=== PATIENT | female | born 1965 | race Asian ===

== ENCOUNTER → 2016-12-06 | Outpatient (CLI) | payer BC ==
--- NOTE | 2016-12-06 11:10 | XR ---
EXAMINATION TYPE: XR cervical spine limited DATE OF EXAM: 12/06/2016 11:07 AM TECHNIQUE: Frontal, lateral, and open mouth view of the cervical spine are obtained. HISTORY: Neck pain M54.2 headache with neck pain and tingling. COMPARISON: None FINDINGS: The cervical spine is visualized in its entirety from C1 thru the top of T1 level, it is s atisfactory in alignment without evidence of acute fracture or dislocation. The pre-vertebral soft t issue appears within normal limits. The C1-C2 articulation is within normal limits on the open mouth view. Vertebral body heights and disc space heights are fairly well-maintained. There is mild to mod erate multilevel anterior spurring in the cervical spine with anterior calcifications or ossification s identified. Multilevel uncovertebral facet degenerative changes are suspected bilaterally in the mi d cervical spine. IMPRESSION: Degenerative changes cervical spine as detailed above, consider MRI correlation.
== END ==
LOC: RADXRMAIN 10:47
PROVIDERS: ATTEND Family Medicine
DX: M77.8 Other enthesopathies, not elsewhere classified (principal)
CPT/HCPCS: 72040

== ENCOUNTER → 2017-03-30 | Outpatient (CLI) | payer BC ==
--- NOTE | 2017-03-30 12:27 | US ---
EXAMINATION TYPE: US pelvic complete DATE OF EXAM: 03/30/2017 COMPARISON: 03/26/2016 CLINICAL HISTORY: 51-year-old female D25.9 Uterine Leiomyoma. TECHNIQUE: Transabdominal (TA) FINDINGS: Date of LMP: 03/22/2017 Uterus: Anteverted measuring 11.4 x 5.7 x 8.9 cm there is a right posterior fundal fibroid measures 4.8 cm and may abut the endometrium. It is primarily intramural and was previously measured at 5.7 c m. Endometrial Stripe: 0.9 cm, within normal limits. Right Ovary: 3.1 x 1.5 x 2.8 cm Left Ovary: 2.1 x 1.1 x 2.7 cm Follicular change present on both sides. No evidence of adnexal abnormality or cul-de-sac free fluid. IMPRESSION: The posterior right fundal focal fibroid measures 4.8 cm. Previously, it was measured at 5.7 cm. Fibr oid is primarily intramural but may abut the endometrium.
== END | disposition home or self-care (01) ==
LOC: RADUSWWP 09:50
PROVIDERS: ATTEND Obstetrics & Gynecology
DX: D25.9 Leiomyoma of uterus, unspecified (principal)
CPT/HCPCS: 76856

== ENCOUNTER → 2017-03-31 | Outpatient (CLI) | payer BC ==
--- NOTE | 2017-04-04 07:16 | MM ---
Reason for exam: screening (asymptomatic). Last mammogram was performed 1 year ago. Physical Findings: A clinical breast exam by your physician is recommended on an annual basis and results should be correlated with mammographic findings. MG Screening Mammo w CAD Bilateral CC and MLO view(s) were taken. Prior study comparison: March 26, 2016, bilateral MG screening mammo w CAD. January 08, 2015, bilateral MG screening mammo w CAD. January 02, 2014, bilateral digital screening mammo w/CAD. The breast tissue is heterogeneously dense. This may lower the sensitivity of mammography. No significant changes when compared with prior studies. ASSESSMENT: Negative, BI-RAD 1 RECOMMENDATION: Routine screening mammogram of both breasts in 1 year.
== END | disposition home or self-care (01) ==
LOC: RADMAMWWP 17:04
PROVIDERS: ATTEND Obstetrics & Gynecology
DX: Z12.31 Encounter for screening mammogram for malignant neoplasm of breast (principal)

== ENCOUNTER → 2018-04-24 | Outpatient (CLI) | payer BC ==
--- NOTE | 2018-04-24 17:23 | US ---
EXAMINATION TYPE: US pelvic complete plus Dopplers DATE OF EXAM: 04/24/2018 COMPARISON: 03/30/2017 CLINICAL HISTORY: 52-year-old female R10.2 Pelvic Pain; occasional left pelvic pain. ; uterine fi broids TECHNIQUE: Transabdominal sonographic images of the pelvis were acquired; color Doppler and spectral waveform analysis of the ovarian arteries and veins. Date of LMP: 04/16/2018 FINDINGS: EXAM MEASUREMENTS: Uterus: 10.3 x 7.5 x 6.1 cm Endometrial Stripe: 0.3 cm Right Ovary: 2.3 x 1.7 x 1.5 cm Left Ovary: 2.2 x 1.9 x 1.3 cm 1. Uterus: Anteverted; couple of cervical Nabothian cysts, largest located anteriorly measuring 9 mm . There is very heterogeneous appearance to the posterior uterine fundus/body suggesting an aggregate of fibroids measuring up to 5.8 x 5.9 x 2.8 cm. This appears intramural. 2. Endometrium: limitedly seen due to uterine fibroids partially obscuring endometrial area. Visuali zed endometrial stripe is within normal limits. 3. Right Ovary: small follicles with largest as simple follicular cyst =1.1 x 1.0 x 0.7cm 4. Left Ovary: small hypoechoic cyst = 0.9 x 1.0 x 0.6 and could be involuting cyst Spectral, color and waveform Doppler imaging shows good arterial and venous flow within the ovaries ; there is no evidence for ovarian torsion. 5. Bilateral Adnexa: wnl 6. Posterior cul-de-sac: wnl IMPRESSION: 1. No sonographic evidence for ovarian torsion. 2. Heterogeneous posterior uterine fundus/body suggesting an aggregate of intramural fibroids measuri ng up to 5.9 cm. 3. Some of the endometrial stripe is obscured due to the fibroid change. The visualized endometrial s tripe is thin at 3 mm.
== END | disposition home or self-care (01) ==
LOC: RADUSWWP 13:01
PROVIDERS: ATTEND Obstetrics & Gynecology
DX: D25.9 Leiomyoma of uterus, unspecified (principal)
CPT/HCPCS: 76856

== ENCOUNTER → 2018-05-09 | Outpatient (CLI) | payer BC ==
--- NOTE | 2018-05-10 14:48 | MM ---
Reason for exam: screening (asymptomatic). Last mammogram was performed 1 year and 1 month ago. Physical Findings: A clinical breast exam by your physician is recommended on an annual basis and results should be correlated with mammographic findings. MG Screening Mammo w CAD Bilateral CC and MLO view(s) were taken. Prior study comparison: March 31, 2017, bilateral MG screening mammo w CAD. March 26, 2016, bilateral MG screening mammo w CAD. The breast tissue is heterogeneously dense. This may lower the sensitivity of mammography. No significant changes when compared with prior studies. ASSESSMENT: Benign, BI-RAD 2 RECOMMENDATION: Routine screening mammogram of both breasts in 1 year.
== END | disposition home or self-care (01) ==
LOC: RADMAMWWP 15:09
PROVIDERS: ATTEND Obstetrics & Gynecology
DX: Z12.31 Encounter for screening mammogram for malignant neoplasm of breast (principal)
CPT/HCPCS: 77067

== ENCOUNTER → 2019-06-19 | Outpatient (CLI) | payer BC ==
--- NOTE | 2019-06-20 09:34 | MM ---
Reason for exam: screening (asymptomatic). Last mammogram was performed 1 year and 1 month ago. Physical Findings: A clinical breast exam by your physician is recommended on an annual basis and results should be correlated with mammographic findings. MG Screening Mammo w CAD Bilateral CC and MLO view(s) were taken. Prior study comparison: May 09, 2018, bilateral MG screening mammo w CAD. March 31, 2017, bilateral MG screening mammo w CAD. The breast tissue is extremely dense which could obscure a lesion on mammography. Finding: There are typically benign dystrophic, round calcifications in both breasts. There is no discrete abnormality. ASSESSMENT: Benign, BI-RAD 2 RECOMMENDATION: Routine screening mammogram of both breasts in 1 year.
== END | disposition home or self-care (01) ==
LOC: RADMAMWWP 09:12
PROVIDERS: ATTEND Obstetrics & Gynecology
DX: Z12.31 Encounter for screening mammogram for malignant neoplasm of breast (principal)
CPT/HCPCS: 77067

== ENCOUNTER → 2020-06-09 | Outpatient (CLI) | payer BC ==
--- NOTE | 2020-06-09 17:58 | US ---
EXAMINATION TYPE: US pelvic complete DATE OF EXAM: 06/09/2020 COMPARISON: NONE CLINICAL HISTORY: 54-year-old female D25.9 Uterine fibroids. LLQ Pain; Hx of fibroids TECHNIQUE: Transvaginal (TV) and Transabdominal (TA) . Transabdominal sonographic images of the pel vis were acquired. Transvaginal sonographic images were medically necessary to better assess the fol lowing anatomy: Ovaries FINDINGS: EXAM MEASUREMENTS: Uterus: 12.0 x 6.9 x 7.3 cm Endometrial Stripe: 1.1 cm Right Ovary: 2.6 x 1.7 x 1.9 cm Left Ovary: 2.6 x 1.4 x 1.9 cm 1. Uterus: Anteverted. Right posterior uterine fundal focal fibroid measuring 6.1 x 5.8 x 5.0 cm 2. Endometrium: wnl 3. Right Ovary: Hypoechoic area 1.5 x 1.2 x 1.1 cm, possible corpus luteum 4. Left Ovary: wnl 5. Bilateral Adnexa: wnl 6. Posterior cul-de-sac: wnl IMPRESSION: 1. Endometrial stripe measures 1.1 cm which would be abnormally thickened for a postmenopausal female . Correlate to ensure premenopausal state. 2. A 6.1 cm focal fibroid right posterior uterine fundus. 3. A 1.5 cm hypoechoic area in the right ovary could represent a corpus luteum. Follow-up in 2-3 rand hs to reassess.
== END | disposition home or self-care (01) ==
LOC: RADUSWWP 13:02
PROVIDERS: ATTEND Obstetrics & Gynecology
DX: R93.89 Abnormal findings on diagnostic imaging of other specified body structures (principal); D25.9 Leiomyoma of uterus, unspecified
CPT/HCPCS: 76856

== ENCOUNTER → 2020-07-01 | Outpatient (CLI) | payer BC ==
--- NOTE | 2020-07-03 11:25 | MM ---
Reason for exam: screening (asymptomatic). Last mammogram was performed 1 year ago. Physical Findings: A clinical breast exam by your physician is recommended on an annual basis and results should be correlated with mammographic findings. MG 3D Screening Mammo W/Cad Bilateral CC and MLO view(s) were taken. Prior study comparison: June 19, 2019, bilateral MG screening mammo w CAD. May 09, 2018, bilateral MG screening mammo w CAD. The breast tissue is heterogeneously dense. This may lower the sensitivity of mammography. Benign appearing bilateral calcifications. No significant changes when compared with prior studies. ASSESSMENT: Benign, BI-RAD 2 RECOMMENDATION: Routine screening mammogram of both breasts in 1 year.
== END | disposition home or self-care (01) ==
LOC: RADMAMWWP 13:52
PROVIDERS: ATTEND Obstetrics & Gynecology
DX: Z12.31 Encounter for screening mammogram for malignant neoplasm of breast (principal)
CPT/HCPCS: 77063; 77067

== ENCOUNTER → 2021-07-17 | Outpatient (CLI) | payer SELFPAY ==
--- NOTE | 2021-07-20 11:59 | MM ---
Reason for exam: screening (asymptomatic). Last mammogram was performed 1 year and 1 month ago. Physical Findings: A clinical breast exam by your physician is recommended on an annual basis and results should be correlated with mammographic findings. MG 3D Screening Mammo W/Cad Bilateral CC and MLO view(s) were taken. Prior study comparison: July 01, 2020, bilateral MG 3d screening mammo w/cad. June 19, 2019, bilateral MG screening mammo w CAD. May 09, 2018, bilateral MG screening mammo w CAD. March 31, 2017, bilateral MG screening mammo w CAD. The breast tissue is heterogeneously dense. This may lower the sensitivity of mammography. No significant changes when compared with prior studies. ASSESSMENT: Benign, BI-RAD 2 RECOMMENDATION: Routine screening mammogram of both breasts in 1 year.
== END | disposition home or self-care (01) ==
LOC: RADMAMWWP 08:39
PROVIDERS: ATTEND Obstetrics & Gynecology
DX: Z12.31 Encounter for screening mammogram for malignant neoplasm of breast (principal)
CPT/HCPCS: 77063; 77067

== ENCOUNTER → 2022-08-18 | Outpatient (CLI) | payer BC ==
--- NOTE | 2022-08-18 12:04 | BD ---
EXAMINATION TYPE: Axial Bone Density DATE OF EXAM: 08/18/2022 COMPARISON: BASELINE CLINICAL HISTORY: 56 years year old Female. ICD-10 CODE: Z13.820 OSTEOPOROSIS Height: 58.5 Weight: 109 FRAX RISK QUESTIONS: Alcohol (3 or more units per day): NO Family History (Parent hip fracture): NO Glucocorticoids (More than 3mos): NO (Ex: prednisone, prednisolone, methylprednisolone, dexamethasone, and hydrocortisone). History of Fracture in Adulthood: NO Secondary Osteoporosis: 1. Type 1 Diabetes: NO 2. Hyperthyroidism: NO 3. Menopause before 45: NO AGE 55 4. Malnutrition: NO 5. Chronic liver disease: NO Rheumatoid Arthritis: NO Current Tobacco Use: NO RISK FACTORS HISTORY OF: Hip Fracture (Right/Left): NO Spine Fracture: NO History of Wrist Fracture: NO Surgery to Spine/Hip(right/left)/Wrist (right/left): NO Family History of Osteoporosis: NO Active: YES Diet low in dairy products/other sources of calcium: NO Postmenopausal woman: YES Lost more than 2 inches in height since high school: NO Frequent falls: NO Poor Health: NO Hyperparathyroidism: NO Adrenal Insufficiency: NO MEDICATIONS: Additional Medications: WOMEN'S ONE A DAY VITAMIN, CHOLESTEROL MEDS, BLOOD PRESSURE MEDS Additional History: EXAM MEASUREMENTS: Bone mineral densitometry was performed using the [employer] System. Bone mineral density as measured about the Lumbar spine is: ----- L1-L4(G/cm2): 1.227 T Score Values are as follows: ----- L1: 0.8 ----- L2: 1.0 ----- L3: 0.3 ----- L4: -0.5 ----- L1-L4: 0.4 Bone mineral density about the R hip (g/cm2): 1.090 Bone mineral density about the L hip (g/cm2): 1.130 T Score values are as follows: -----R Neck: -0.6 -----L Neck: -0.1 -----R Total: 0.7 -----L Total: 1.0 FRAX%s: The graph provided illustrates a 2.6% chance for a major osteoporotic fx and a 0.2% chance fo r the hips probability for fx in 10 years time. IMPRESSION: Normal (Values between +1 and -1 indicate normal bone mass). Consider repeating this study in 5 year s or sooner if there is some new clinical indication. NOTE: T-SCORE=SD OF THE YOUNG ADULT MEAN.
--- NOTE | 2022-08-18 13:44 | MM ---
Reason for Exam: Screening (asymptomatic). Last mammogram was performed 1 year(s) and 1 month(s) ago. Patient History: Menarche at age 16. First Full-Term at age 32. Late child-bearing (after 30). Postmenopausal. Last menstrual period: 07/08/2021 Risk Values: [place] 5 year model risk: 1.4%. NCI Lifetime model risk: 10.4%. Prior Study Comparison: 01/02/2014 Bilateral Screening Mammogram, [facility]. 01/08/2015 Bilateral Screening Mammogram, [facility]. 03/26/2016 Bilateral Screening Mammogram, [facility]. 03/31/2017 Bilateral Screening Mammogram, [facility]. 05/09/2018 Bilateral Screening Mammogram, [facility]. 06/19/2019 Bilateral Screening Mammogram, [facility]. 07/01/2020 Bilateral Screening Mammogram, [facility]. 07/17/2021 Bilateral Screening Mammogram, [facility]. Tissue Density: The breast tissue is heterogeneously dense. This may lower the sensitivity of mammography. Findings: Analyzed By CAD. There is no suspicious group of microcalcifications or new suspicious mass in either breast. Overall Assessment: Negative, BI-RAD 1 Management: Screening Mammogram of both breasts in 1 year. A clinical breast exam by your physician is recommended on an annual basis and results should be correlated with mammographic findings. Electronically signed and approved by: Mark Torres M.D. Radiologis
== END | disposition home or self-care (01) ==
LOC: RADBDWWP 11:08
PROVIDERS: ATTEND Internal Medicine
DX: Z12.31 Encounter for screening mammogram for malignant neoplasm of breast (principal); Z13.820 Encounter for screening for osteoporosis; Z78.0 Asymptomatic menopausal state
CPT/HCPCS: 77067; 77080

== ENCOUNTER → 2023-09-07 | Outpatient (CLI) | payer BC ==
--- NOTE | 2023-09-10 23:30 | MM ---
Reason for Exam: Screening (asymptomatic). Last mammogram was performed 1 year(s) and 1 month(s) ago. Patient History: Menarche at age 16. First Full-Term at age 32. Late child-bearing (after 30). Postmenopausal. Risk Values: [place] 5 year model risk: 1.3%. NCI Lifetime model risk: 6.6%. Prior Study Comparison: 07/01/2020 Bilateral Screening Mammogram, [facility]. 07/17/2021 Bilateral Screening Mammogram, [facility]. 08/18/2022 Bilateral MG screening mammo w CAD, [facility]. Tissue Density: The breast tissue is heterogeneously dense. This may lower the sensitivity of mammography. Findings: Analyzed By CAD. There is no suspicious group of microcalcifications or new suspicious mass in either breast. Overall Assessment: Negative, BI-RAD 1 Management: Screening Mammogram of both breasts in 1 year. . Patient should continue monthly self-breast exams. A clinical breast exam by your physician is recommended on an annual basis. This exam should not preclude additional follow-up of suspicious palpable abnormalities. Note on [place] scores and lifetime risk: 1. A [place] score greater than 3% is considered moderate risk. If this is the case, consider specialist referral to assess eligibility for a risk reducing agent. 2. If overall lifetime risk for the development of breast cancer is 20% or higher, the patient may qualify for future screening with alternating mammogram and breast MRI. Electronically signed and approved by: Zain Huitron M.D. Radiologist
== END | disposition home or self-care (01) ==
LOC: RADMAMWWP 12:00
PROVIDERS: ATTEND Internal Medicine
DX: Z12.31 Encounter for screening mammogram for malignant neoplasm of breast (principal); Z78.0 Asymptomatic menopausal state
CPT/HCPCS: 77067

== ENCOUNTER → 2024-12-24 | Outpatient (CLI) | payer BC ==
--- NOTE | 2024-12-24 16:51 | MM ---
Reason for Exam: Screening (asymptomatic). Last mammogram was performed 1 year(s) and 4 month(s) ago. Patient History: Menarche at age 16. First Full-Term at age 32. Late child-bearing (after 30). Postmenopausal. Risk Values: [place] 5 year model risk: 1.4%. NCI Lifetime model risk: 6.2%. Prior Study Comparison: 07/17/2021 Bilateral Screening Mammogram, [facility]. 08/18/2022 Bilateral MG screening mammo w CAD, [facility]. 09/07/2023 Bilateral MG screening mammo w CAD, [facility]. Tissue Density: The breasts are heterogeneously dense, which may obscure small masses. Findings: Analyzed By CAD. Grouped calcifications posterior medial left breast remain unchanged. There is no suspicious group of microcalcifications or new suspicious mass in either breast. Overall Assessment: Benign, BI-RAD 2 Management: Screening Mammogram of both breasts in 1 year. Patient should continue monthly self-breast exams. A clinical breast exam by your physician is recommended on an annual basis. This exam should not preclude additional follow-up of suspicious palpable abnormalities. Note on [place] scores and lifetime risk: 1. A [place] score greater than 3% is considered moderate risk. If this is the case, consider specialist referral to assess eligibility for a risk reducing agent. 2. If overall lifetime risk for the development of breast cancer is 20% or higher, the patient may qualify for future screening with alternating mammogram and breast MRI. [facility], , 12/24/2024 4:48 PM. Electronically signed and approved by: Zain Huitron M.D. Radiologist
== END | disposition home or self-care (01) ==
LOC: RADMAMWWP 14:02
PROVIDERS: ATTEND Obstetrics & Gynecology
DX: Z12.31 Encounter for screening mammogram for malignant neoplasm of breast (principal); R92.333 Mammographic heterogeneous density, bilateral breasts; Z78.0 Asymptomatic menopausal state
CPT/HCPCS: 77067